=== PATIENT | male | born 1940 | race Two or more races ===

== ENCOUNTER 2016-08-11 19:33 | Emergency (ER) | payer MEDICARE, MEDICAID ==
[~2016-08-11] VITALS: Ht 160 cm; Wt 72.6 kg
[2016-08-11 20:00] VITALS: BP 145/94
[2016-08-11] MEDS ORDERED: predniSONE 20 MG TABLET PO ONE (20:30)
[2016-08-11] MEDS ORDERED: ALBUTEROL FS 2.5 MG/3 ML VIAL.NEB CONTNEB ONE (20:30)
[2016-08-11] MEDS ORDERED: IPRATROPIUM NEB FS 0.5 MG/2.5 ML AMPUL.NEB NEB ONE (20:30)
[2016-08-11] MEDS ORDERED: predniSONE 20 MG TABLET ONE (20:31)
[2016-08-11] MEDS ORDERED: IPRATROPIUM NEB FS 0.5 MG/2.5 ML AMPUL.NEB ONE (20:36)
[2016-08-11] MEDS ORDERED: ALBUTEROL FS 2.5 MG/3 ML VIAL.NEB ONE (20:36)
== END 2016-08-11 21:10 | disposition home or self-care (01) ==
LOC: ER 19:38
DX: J20.9 Acute bronchitis, unspecified (principal); J44.9 Chronic obstructive pulmonary disease, unspecified
CPT/HCPCS: A4606; Z7610